=== PATIENT | male | born 1945 | race Caucasian/White ===

== ENCOUNTER → 2019-06-09 10:53 | Outpatient (BNVA) | payer OTHER, SELFPAY | PROVIDERS: Family Provider Family Medicine; PCP Family Medicine; Visit Provider Urology | DX: N40.1 Benign prostatic hyperplasia with lower urinary tract symptoms (principal); N13.8 Other obstructive and reflux uropathy; N52.9 Male erectile dysfunction, unspecified; N20.0 Calculus of kidney | CPT/HCPCS: 81001 ==

== ENCOUNTER → 2019-09-18 14:17 | Outpatient (BNVA) | payer MEDICARE, OTHER, SELFPAY | PROVIDERS: Family Provider Family Medicine; PCP Family Medicine; Visit Provider Nurse Practitioner Family | DX: R50.9 Fever, unspecified (principal); B34.9 Viral infection, unspecified; F17.211 Nicotine dependence, cigarettes, in remission; Z71.89 Other specified counseling | CPT/HCPCS: 87400 ==

== ENCOUNTER 2019-10-05 10:33 | Outpatient (CLI) | payer OTHER, MEDICARE, SELFPAY ==
--- NOTE | 2019-10-05 | XRR_ITS ---
PROCEDURE INFORMATION: Exam: XR Abdomen, 1 View Exam date and time: 10/05/2019 10:52 AM Age: 73 years old Clinical indication: Condition or disease; Other: Stones; Additional info: Stone TECHNIQUE: Imaging protocol: XR of the abdomen. Views: Frontal supine view of the abdomen. 1 View. COMPARISON: No relevant prior studies available. FINDINGS: Gastrointestinal tract: bowel gas pattern is nonspecific. Air filled large bowel including distal rectal gas. Moderate amount stool throughout the large bowel. Organs: 6 mm calculus lower pole right kidney. Bones/joints: Unremarkable. Soft tissues: No calcifications are seen overlying the expected course of the right or left ureters. No suspicious calcifications within the pelvis. XR/XR KUB [id number] IMPRESSION: 1. Bowel gas pattern is nonspecific. Air filled large bowel including distal rectal gas. 2. Moderate amount stool throughout the large bowel.
== END 2019-10-05 10:34 | disposition home or self-care (01) ==
LOC: RAD 10:42
PROVIDERS: PCP Family Medicine; Visit Provider Urology
DX: N20.0 Calculus of kidney (principal)
CPT/HCPCS: 74018; 81001

== ENCOUNTER 2020-04-18 23:01 | Emergency (ER) | payer OTHER, MEDICARE, SELFPAY ==
[2020-04-18 23:06] VITALS: BP 169/90; PULSE 92; RESP 18; TEMP 36.6; O2SAT 97; BMI 32.3
--- NOTE | 2020-04-18 23:15 | ED_ITS ---
HPI - Wound/Laceration General: Chief Complaint: Wound/Laceration Stated Complaint: lacetation to left index finger Time Seen by Provider: 04/18/20 23:07 History of Present Illness: HPI narrative: Patient is a 74-year-old male comes to the ED with superficial laceration to left index finger. Patient says he was skinning an otter with his knife and his knife slipped causing the cut to his left index finger. He was able to control bleeding with towel and pressure. Patient is able to fully move finger and says he is in minimal pain. Patient says he is not up-to-date on his tetanus shot. Associated symptoms: Denies chills, fever(s), nausea or vomiting Review of Systems Const: Denies: fever(s), chills or fatigue Eyes: Denies: change in vision or eye discomfort ENMT: Denies: throat pain, odynophagia, nasal discharge or nasal congestion Card: Denies: chest pain, palpitations, edema, swelling of feet/ankles, dyspnea on exertion or orthopnea Resp: Denies: dyspnea, productive cough or non-productive cough GI: Denies: abdominal pain, nausea, vomiting, diarrhea, constipation or hematochezia : Denies: flank pain, difficulty urinating, dysuria or hematuria Musc: Denies: neck pain, back pain or extremity swelling Skin/Breast: Reports: new lesions (laceration to left index finger); Denies: rash Neuro: Denies: headache(s), numbness in extremities or weakness in extremities PFSH ED PFSH: Medical History BPH loc w urin obs/LUTS Erectile dysfunction Renal calculi Surgical History H/O fasciotomy History of total left knee replacement S/P hernia repair S/P shoulder surgery S/P tonsillectomy Family History Father , 79 Cancer prostate Mother , 87 Lung disease Social History Smoking and tobacco status: former smoker Alcohol intake: current Alcohol intake frequency: few times a month Adopted: No Caregiver/support person: No Lives independently: No Household members: spouse Marital status: Current occupational status: retired History of recent travel: No Current gender identity: Male Physical Exam Const: COMMON NORMALS: no acute distress, patient oriented x3 and alert GENERAL APPEARANCE: cooperative and comfortable HENMT: COMMON NORMALS: normocephalic HEAD & SCALP: normocephalic MOUTH: Normal oral and palatal mucosa present THROAT: posterior oropharynx normal and uvula midline Neck/C-Spine: COMMON NORMALS: supple GENERAL: Yes normal visual inspection Resp: COMMON NORMALS: normal respiratory effort, No retractions, No use of accessory muscles and clear to auscultation bilaterally AUSCULTATION: clear to auscultation bilaterally Cardio: COMMON NORMALS: regular rate, regular rhythm, S1 normal heart sound present, S2 normal heart sound present, No gallops present (Cardio), No clicks present (Cardio), No murmurs present (Cardio) and Peripheral pulses 2+ throughout RATE: regular rate RHYTHM: regular rhythm HEART SOUNDS: S1 normal heart sound present and S2 normal heart sound present PERIPHERAL PULSES: Peripheral pulses 2+ throughout GI: COMMON NORMALS: Normal to inspection, nondistended, normoactive bowel sounds present, Soft to palpation, non-tender and no masses PALPATION: Yes Soft to palpation : COMMON NORMALS: Yes no CVA tenderness BLADDER/KIDNEY EXAM: Yes no CVA tenderness Back/Pelvis: COMMON NORMALS: no CVA tenderness Extremity: NARRATIVE EXTREMITY EXAM: Superficial 1 cm linear laceration to index finger on left hand. No active bleeding and laceration appears clean and not contaminated. Patient has full range of for index finger on left hand. Neuro: COMMON NORMALS: patient oriented x3 and moves all extremities SENSORIUM/ORIENTATION: Yes alert Skin: NARRATIVE SKIN EXAM: Superficial 1 cm linear laceration to index finger on left hand. No active bleeding and laceration appears clean and not contamina meli. GENERAL SKIN EXAM: dry skin Procedures Laceration Laceration 1: Site: hand (Index finger) Side (If applicable): left Size (cm): 1 Description: linear and clean Depth: simple, single layer Pre-repair: irrigated extensively (Irrigated extensively with normal saline and cleaned with CHG swab.) Skin layer closed with: other (Dermabond used) Size (cm): other (Dermabond ) Course Vital Signs: Vital signs: Vital Signs Temperature 97.9 F 04/18/20 23:06 Pulse Rate 92 04/18/20 23:06 Respiratory Rate 18 04/18/20 23:06 Blood Pressure 169/90 04/18/20 23:06 Pulse Oximetry 97 04/18/20 23:06 MDM - Wound/Laceration MDM Narrative: Medical decision making narrative: Patient is a 74-year-old male comes to the ED with a laceration to left index finger. Laceration is on left index finger and is approximately 1 cm linear shape and superficial. Patient has full range of motion on left index finger. Laceration was irrigated extensively with normal saline and then Dermabond was used to close laceration. Laceration was then bandaged by nurse. He was given an updated tetanus shot while here in the ED. Discharged with a prescription for Augmentin as prophylactic treatment for infection. Follow-up with PCP in 7 to 10 days. Return to ED precautions given. Patient understood agree with plan. Discharge Plan Discharge Patient Disposition: Home Clinical Impression: Laceration of finger Qualifiers: Encounter type: initial encounter Finger: index finger Damage to nail status: without damage Foreign body presence: without foreign body Laterality: left Qualified Code(s): S61.211A - Laceration without foreign body of left index finger without damage to nail, initial encounter Condition: Stable Prescriptions: New Augmentin 500-125 mg tablet 1 tab PO BID 5 Days Qty: 10 RF: 0 No Action tamsulosin 0.4 mg capsule 0.8 mg PO DAILY RF: 0 ferrous sulfate 325 mg (65 mg iron) tablet 325 mg PO DAILY RF: 0 cholecalciferol (vitamin D3) 2,000 unit tablet 2,000 unit PO DAILY RF: 0 sertraline [Zoloft] 100 mg tablet 100 mg PO DAILY RF: 0 nortriptyline 10 mg capsule 10 mg PO DAILY RF: 0 sumatriptan succinate [Imitrex] 6 mg/0.5 mL solution SUBCUT RF: 0 methocarbamol 750 mg tablet 750 mg PO TID PRNRF: 0 atorvastatin 80 mg tablet 80 mg PO DAILY RF: 0 levothyroxine 100 mcg capsule 100 mcg PO DAILY RF: 0 vitamin E (dl, acetate) 400 unit capsule 400 unit PO DAILY RF: 0 finasteride 5 mg tablet 5 mg PO DAILY RF: 0 sildenafil 100 mg tablet See Rx Instructions .Route .COMPLEX Qty: 20 RF: 6 Discharge Orders: Discharge ED (Routine); Ordered 04/18/20 Ordered By: Jez Holt Referrals: Suresh Keyes [Primary Care Provider] - Discharge Diet: Regular Discharge Activity: Limit activity as instructed Patient Instructions: Finger Laceration (ED), Skin Adhesive Care (ED) Activity Restrictions/Additional Instructions: Take full course of antibiotics as prescribed. Keep laceration site clean, dry and don't bend finger for the next 48 hours. Then after that you can clean and re-bandage daily. Watch for signs of infection such as redness, warmth, increased tenderness and puslike drainage. If you see the signs of infection return to the ED, urgent care or PCP for reevaluation. call your PCP to schedule a follow-up appointment for reevaluation in about 10 days. Continue taking all home meds. Follow discharge plans as discussed. You can return to the ED if symptoms worsen. Coding Level of Care Code ED Creping Machine Operator Helper for Eunice Collazo Exam Comprehensive
[2020-04-18] MEDS: tetanus-dipt-pertussis 0.5 mL SDV IM (23:45)
[2020-04-18] MEDS: cephALEXin 500 mg Capsule PO (23:46)
--- NOTE | 2020-04-18 23:54 | PC.NURSE ---
telfa applied with gauze 2 wrap with finger splint with coban applied. Reviewed d/c instructions with pt and maintain dressing for 48 hours.
== END 2020-04-19 | disposition home or self-care (01) ==
PROVIDERS: Emergency Provider Physician Assistant; PCP Family Medicine
DX: S61.211A Laceration without foreign body of left index finger without damage to nail, initial encounter (principal); Z87.891 Personal history of nicotine dependence; W26.0XXA Contact with knife, initial encounter; Z23 Encounter for immunization
CPT/HCPCS: 12001; 12345; 90715; 96374; 99281; 99283

== ENCOUNTER 2021-01-25 12:06 | Outpatient (CLI) | payer OTHER, SELFPAY ==
--- NOTE | 2021-01-25 12:00 | XR_ITS ---
WS: [id number] XR KUB [id number] REASON FOR EXAM: RENAL CALCULI FINDINGS: No left intrarenal calculi identified. Previously demonstrated right intrarenal calculi are not identified however there is significant over lying bowel gas and fecal material. No calculi along the course of the ureters or overlying the bladder is identified. Battery pack and leads in the left lower quadrant. Dorsal column stimulator. No other significant abdominal finding. XR/XR KUB [id number] IMPRESSION: No urinary tract calculi identified however the previously demonstrated right r enal calculus is likely obscured by overlying bowel.
== END 2021-01-25 12:07 | disposition home or self-care (01) ==
LOC: RAD 12:07
PROVIDERS: PCP Family Medicine; Visit Provider Urology
DX: N20.0 Calculus of kidney (principal); N40.1 Benign prostatic hyperplasia with lower urinary tract symptoms
CPT/HCPCS: 74018; 81003

== ENCOUNTER 2021-06-28 16:48 | Emergency (ER) | payer OTHER, MEDICARE, SELFPAY ==
[2021-06-28 17:34] VITALS: BP 122/72; PULSE 102; RESP 16; TEMP 37.2; O2SAT 93; BMI 32.3
--- NOTE | 2021-06-28 18:24 | W.ED.GENADLT ---
Documented by User: John Diamond MD 06/29/21 21:07 HPI - General Adult General: Chief complaint: Nausea/Vomiting/Diarrhea Stated complaint: covid symptoms Time Seen by Provider: 06/28/21 17:46 History of Present Illness: Patient is a 75-year-old male with a history of prior abdominal wall hernia repair, renal colic who presents to the emergency room 3 days of diarrhea now with 1 episode of vomiting and lower abdominal pain. Patient tells me that for the last 3 days, he he has had liquid stool. Patient denies any sick contacts at home, recent antibiotics or any recent travel. Patient tells me that around 1230 today, patient began having lower abdominal pain and one episode of vomiting. Patient reports a low-grade fever 99 degrees. Patient denies any melena/hematochezia. Patient has no urinary complaints. Patient denies any penile discharge. Patient denies any chest pain or short of breath, palpitation, cough, sore throat, nasal congestion, runny nose. Patient has no prone with p.o. intake, Onset: 3 days ago Duration:3 days Location:home Severity:mild/moderate Associated symptoms: Reports nausea and vomiting; Deny chest pain, dyspnea, rash or palpitations Review of Systems Const: Denies: fever(s) or chills Eyes: Denies: change in vision ENMT: Denies: mouth pain Card: Denies: chest pain or palpitations Resp: Denies: dyspnea or non-productive cough GI: Reports: abdominal pain, nausea, vomiting and diarrhea : Denies: dysuria Musc: Denies: extremity pain Skin/Breast: Denies: rash or new lesions Neuro: Denies: weakness in extremities Psych: Reports: other (Normal mood) Idris/Lymph: Denies: easy bruising PFSH ED PFSH: Medical History (Updated 06/29/21 @ 01:20 by Wally Real MD) BPH loc w urin obs/LUTS Erectile dysfunction Renal calculi Surgical History H/O fasciotomy History of total left knee replacement S/P hernia repair S/P shoulder surgery S/P tonsillectomy Family History Father , 79 Cancer prostate Mother , 87 Lung disease Social History Smoking and tobacco status: former smoker Alcohol intake: current Alcohol intake frequency: few times a month Adopted: No Caregiver/support person: No Lives independently: No Household members: spouse Marital status: Current occupational status: retired History of recent travel: No Current gender identity: Male Physical Exam Const: COMMON NORMALS: alert HENMT: COMMON NORMALS: atraumatic HEAD & SCALP: atraumatic MOUTH: moist mucous membranes not abnormal Eye: COMMON NORMALS: EOMs intact bilaterally and conjunctivae normal CONJUNCTIVA: Yes conjunctivae normal Neck/C-Spine: COMMON NORMALS: full ROM and supple Resp: COMMON NORMALS: normal respiratory effort and clear to auscultation bilaterally AUSCULTATION: clear to auscultation bilaterally Cardio: COMMON NORMALS: regular rhythm RATE: tachycardic RHYTHM: regular rhythm GI: COMMON NORMALS: Soft to palpation and non-tender PALPATION: Yes Soft to palpation OTHER: No focal TTP. NO guarding rebound, guarding, rigidity. No CVA tenderness to percussion. Neg Hyde/Neg McBurney's point tenderness, no suprabupic tenderness to palpation. Extremity: COMMON NORMALS: full ROM Neuro: SENSORIUM/ORIENTATION: Yes alert MOTOR EXAM: No Abnormal motor strength present and Other motor observations present (no focal motor deficits) Psych: COMMON NORMALS: speech normal SPEECH: Yes normal speech MOOD & AFFECT: Yes euthymic mood Course Vital Signs: Vital signs: Vital Signs Temperature 98.4 F 06/28/21 23:01 Pulse Rate 103 H 06/29/21 01:32 Respiratory Rate 18 06/29/21 01:32 Blood Pressure 161/80 06/29/21 01:32 Pulse Oximetry 96 06/29/21 01:32 [facility] - General Adult Medical Decision Making 75-year-old male with history of prior abdominal wall hernia repair, renal colic presenting to the emergency room 3 days diarrhea now with lower abdominal pain one episode of emesis. On exam, patient is mildly tachycardic to low 100s. Patient has no focal abdominal tenderness to palpation. No guarding or rebound tenderness. Case signed out to Dr. Rela pending CT evaluation. Lab Data : 06/28/21 18:55 06/28/21 18:55 Radiology Impressions Abdomen/Pelvis CT 06/28/21 21:39 IMPRESSION: Probable fecal impaction in the rectum with more proximal constipation as well as infectious or inflammatory enteritis. Laboratory Results WBC 11.4 10^3/uL (4.0-10.0) H 06/28/21 18:55 RBC 4.57 10^6/uL (4.1-5.3) 06/28/21 18:55 Hgb 15.0 g/dL (11.7-16.6) 06/28/21 18:55 Hct 45.7 % (42.0-52.0) 06/28/21 18:55 MCV 100.0 fl (80-94) H 06/28/21 18:55 MCH 32.8 pg (28.0-34.0) 06/28/21 18:55 MCHC 32.8 g/dL (30.0-36.0) 06/28/21 18:55 RDW 13.0 % (12.1-15.1) 06/28/21 18:55 Plt Count 256 10^3/cmm (130-400) 06/28/21 18:55 MPV 10.5 fL (7.4-10.4) H 06/28/21 18:55 Neut % (Auto) 88.0 % 06/28/21 18:55 Lymph % (Auto) 5.6 % 06/28/21 18:55 [place] % (Auto) 5.4 % 06/28/21 18:55 Eos % (Auto) 0.5 % 06/28/21 18:55 Baso % (Auto) 0.2 % 06/28/21 18:55 Neut # (Auto) 10.07 10^3/uL (1.8-7.7) H 06/28/21 18:55 Lymph # (Auto) 0.6 10^3/uL (0.8-4.8) L 06/28/21 18:55 [place] # (Auto) 0.6 10^3/uL (0.2-0.9) 06/28/21 18:55 Eos # (Auto) 0.1 10^3/uL (0.0-0.8) 06/28/21 18:55 Baso # (Auto) 0.0 10^3/uL (0.0-0.1) 06/28/21 18:55 Nucleated RBC % (auto) 0 % 06/28/21 18:55 Nucleated RBCs # 0.0 /100WBC 06/28/21 18:55 Sodium 138 mmol/L (136-145) 06/28/21 18:55 Potassium 4.2 mmol/L (3.5-5.1) 06/28/21 18:55 Chloride 101 mmol/L (98-107) 06/28/21 18:55 Carbon Dioxide 26 mmol/L (22-29) 06/28/21 18:55 Anion Gap 15.2 (5-19) 06/28/21 18:55 BUN 21 mg/dL (8-23) 06/28/21 18:55 Creatinine 0.7 mg/dL (0.7-1.2) 06/28/21 18:55 GFR Calculation Not Reportable 06/28/21 18:55 Glucose 107 mg/dL (65-115) 06/28/21 18:55 Calculated Osmolality 289 mOsm/kg (285-295) 06/28/21 18:55 Calcium 9.5 mg/dL (8.5-10.5) 06/28/21 18:55 Total Bilirubin 0.4 mg/dL (0.15-1.2) 06/28/21 18:55 AST 18 U/L (0-40) 06/28/21 18:55 ALT 23 U/L (0-41) 06/28/21 18:55 Alkaline Phosphatase 89 IU/L (40-130) 06/28/21 18:55 Total Protein 7.4 g/dL (6.6-8.7) 06/28/21 18:55 Albumin 4.3 g/dL (3.5-5.2) 06/28/21 18:55 Globulin 3.1 g/dL (1.3-4.6) 06/28/21 18:55 Lipase 17 U/L (13-60) 06/28/21 18:55 Discharge Plan Discharge Patient Disposition: Home Clinical Impression: Abdominal pain, Nausea & vomiting, Diarrhea, Enteritis, Constipation Condition: Stable Prescriptions: New Zofran 4 mg tablet 4 mg PO TID PRN (Reason: nausea and vomiting) 4 Days Qty: 12 0RF acetaminophen 500 mg tablet 500 mg PO Q6H PRN (Reason: pain) 5 Days Qty: 20 0RF Pepcid 20 mg tablet 20 mg PO BID PRN (Reason: abdominal pain) 10 Days Qty: 20 0RF Maalox Advanced 1,000-60 mg tablet,chewable 1 tab PO TID PRN (Reason: abdominal pain) 7 Days Qty: 21 0RF Augmentin 875-125 mg tablet 1 tab PO BID Qty: 20 0RF Miralax 17 gram/dose powder 17 g PO BID 5 Days Qty: 170 0RF No Action tamsulosin 0.4 mg capsule 0.8 mg PO DAILY 0RF ferrous sulfate 325 mg (65 mg iron) tablet 325 mg PO DAILY 0RF cholecalciferol (vitamin D3) 2,000 unit tablet 2,000 unit PO DAILY 0RF sumatriptan succinate [Imitrex] 6 mg/0.5 mL solution 6 mg SUBCUT PRN 0RF atorvastatin 80 mg tablet 80 mg PO DAILY 0RF levothyroxine 100 mcg capsule 100 mcg PO DAILY 0RF vitamin E (dl, acetate) 400 unit capsule 400 unit PO DAILY 0RF nortriptyline 10 mg capsule 10 mg PO DAILY 0RF sertraline [Zoloft] 100 mg tablet 50 mg PO DAILY 0RF Rx Instructions: 1/2 methocarbamol 750 mg tablet 1,500 mg PO BID PRN (Reason: Muscle Spasm) 0RF Discharge Orders: Discharge ED (Routine); Ordered 06/29/21 Ordered By: Wally Real Referrals: Susy Aguirre MD [Primary Care Provider] - Discharge Diet: Advance as tolerated Discharge Activity: Increase activity as tolerated Patient Instructions: Constipation (ED), Abdominal Pain (ED), Enteritis (ED) Activity Restrictions/Additional Instructions: Please come back if you have any worsening abdominal pain, fever or chills, nausea or vomiting, diarrhea, blood in the stool, inability hold down liquid or solids, or any new concerning complaints. As discussed you do have evidence of enteritis as well as constipation. Please use MiraLAX as a stool softener mixed with electrolyte-containing solution. The goal is to have applesauce consistency stools. Additionally you will be given antibiotics for the enteritis. Please follow-up with your primary care provider. Sign Out Sign Out Data: Patient Sign Out occurred on 06/28/21 at 23:07. Patient's care was discussed, and care was transferred from to Wally Real MD. Post-Handoff Eval: Patient care handoff received from Dr. Diamond pending completion of ED evaluation. Labs notable minimal leukocytosis. Unremarkable metabolic panel. CT imaging notable for a compaction in the rectum and constipation as well as infectious or inflammatory enteritis. I discussed the results of ED evaluation with the patient. He does feel improved after symptom treatment. With audio production instructor present I performed a rectal exam, there was soft brown stool in the rectal vault and no hard impacted stool was identified. Prescriptions, symptom treatment, follow-up plan, and return precautions discussed with the patient. He verbalized understanding was comfortable with discharge. Wally Real MD Emergency Medicine Coding Level of Care Code ED Returned Goods Repairer for Chg Fwd Exam Comprehensive
[2021-06-28] MEDS: lidocaine 2% viscous 15 ML, aluminum-mag hydrox-simethicon 30 ML, sucralfate oral liq 1 GM PO (18:58)
[2021-06-28] MEDS: sodium chloride 0.9% 500 ML IV (18:58)
[2021-06-28 19:11] LABS: Basophils % 0.2 %; Eosinophils # 0.1 10^3/uL (0.0-0.8); Eosinophils % 0.5 %; Hematocrit 45.7 % (42.0-52.0); Lymphocytes # 0.6 10^3/uL (0.8-4.8); Lymphocytes % 5.6 %; Mean Corpuscular HGB Conc 32.8 g/dL (30.0-36.0); Mean Corpuscular Hemoglobin 32.8 pg (28.0-34.0); Mean Platelet Volume 10.5 fL (7.4-10.4); Monocytes # 0.6 10^3/uL (0.2-0.9); Monocytes % 5.4 %; Neutrophils # 10.07 10^3/uL (1.8-7.7); Nucleated Red Blood Cells % 0 %; Platelet Count 256 10^3/cmm (130-400); Red Blood Count 4.57 10^6/uL (4.1-5.3); White Blood Count 11.4 10^3/uL (4.0-10.0)
[2021-06-28 19:43] LABS: Alanine Aminotransferase 23 U/L (0-41); Albumin Level 4.3 g/dL (3.5-5.2); Alkaline Phosphatase 89 IU/L (40-130); Anion Gap 15.2 (5-19); Aspartate Amino Transferase 18 U/L (0-40); Blood Urea Nitrogen 21 mg/dL (8-23); Calcium 9.5 mg/dL (8.5-10.5); Carbon Dioxide 26 mmol/L (22-29); Chloride 101 mmol/L (98-107); Creatinine Clr Calc Pharmacy 86.7362; Globulin 3.1 g/dL (1.3-4.6); Glucose 107 mg/dL (65-115); Lipase 17 U/L (13-60); Osmolality Calculated 289 mOsm/kg (285-295); Potassium 4.2 mmol/L (3.5-5.1); Sodium 138 mmol/L (136-145); Total Bilirubin 0.4 mg/dL (0.15-1.2); Total Protein 7.4 g/dL (6.6-8.7)
--- NOTE | 2021-06-28 21:39 | CTR_ITS ---
PROCEDURE INFORMATION: Exam: CT Abdomen And Pelvis With Contrast Exam date and time: 06/28/2021 9:39 PM Age: 75 years old Clinical indication: Abnormal findings; Abnormal lab test; Nausea and vomiting; Prior surgery; Surgery type: Hernia repair; Patient HX: N/v/d. Elevated wbc. ; Additional info: Eval for infection TECHNIQUE: Imaging protocol: Computed tomography of the abdomen and pelvis with contrast. Radiation optimization: All CT scans at this facility use at least one of these dose optimization techniques: automated exposure control; mA and/or kV adjustment per patient size (includes targeted exams where dose is matched to clinical indication); or iterative reconstruction. Contrast material: VISI 320; Contrast volume: 75 ml; Contrast route: INTRAVENOUS (IV); COMPARISON: CT abdomen pelvis w con* [id number] 12/09/2017 10:42 PM RADIATION DOSE METRICS: Total DLP (mGy-cm): 1813.69 FINDINGS: Tubes, catheters and devices: There is an electronic stimulator device in the superficial soft tissues of the left flank with its tip in the spinal canal. Lungs: Atelectasis and linear scarring at the lung bases. Liver: Normal. No mass. Gallbladder and bile ducts: Normal. No calcified stones. No ductal dilation. Pancreas: Normal. No ductal dilation. Spleen: Normal. No splenomegaly. Adrenal glands: Normal. No mass. Kidneys and ureters: Normal. No hydronephrosis. Stomach and bowel: There is a fecal impaction in the rectum with more proximal constipation. Scattered diverticula without evidence of acute diverticulitis or perforation. Loops of fluid-filled small bowel throughout the abdomen with enhancing gross consistent with infectious or inflammatory enteritis. Appendix: No evidence of appendicitis. Intraperitoneal space: Unremarkable. No free air. No significant fluid collection. Vasculature: Unremarkable. No abdominal aortic aneurysm. Lymph nodes: Unremarkable. No enlarged lymph nodes. Urinary bladder: Unremarkable as visualized. Reproductive: Unremarkable as visualized. Bones/joints: Unremarkable. No acute fracture. Soft tissues: Unremarkable. CT/CT abdomen pelvis w con* [id number] IMPRESSION: Probable fecal impaction in the rectum with more proximal constipation as well as infectious or inflammatory enteritis.
[2021-06-28] MEDS: diphenhydrAMINE 50 mg/mL SDV 1mL IVP (22:57)
[2021-06-28 23:01] VITALS: BP 149/79; PULSE 102; RESP 14; TEMP 36.9; O2SAT 95
[2021-06-28] MEDS: iodixanol 320 mg/mL 100mL Btl IV (23:07)
[2021-06-29 01:32] VITALS: BP 161/80; PULSE 103; RESP 18; O2SAT 96
== END 2021-06-29 01:35 | disposition home or self-care (01) ==
PROVIDERS: Emergency Medicine; Emergency Provider Emergency Medicine; PCP Family Medicine
DX: K52.9 Noninfective gastroenteritis and colitis, unspecified (principal); K59.00 Constipation, unspecified; Z87.891 Personal history of nicotine dependence
CPT/HCPCS: 74177; 80053; 83690; 85025; 96361; 96374; 96375; 99283; J1200; J2930; J7040; Q9967

== ENCOUNTER → 2021-07-20 13:42 | Outpatient (BNVA) | payer OTHER, SELFPAY | PROVIDERS: PCP Family Medicine; Referring Provider Family Medicine; Visit Provider Surgery | DX: R10.32 Left lower quadrant pain (principal) ==

== ENCOUNTER → 2021-08-02 12:46 | Outpatient (BNVA) | payer OTHER, SELFPAY | PROVIDERS: PCP Family Medicine; Referring Provider Family Medicine; Visit Provider Surgery | DX: R10.32 Left lower quadrant pain (principal) | CPT/HCPCS: 99203 ==

== ENCOUNTER → 2021-10-10 13:38 | Outpatient (BNVA) | payer OTHER, SELFPAY | PROVIDERS: PCP Family Medicine; Visit Provider Urology | DX: N40.1 Benign prostatic hyperplasia with lower urinary tract symptoms (principal); N20.0 Calculus of kidney; N52.9 Male erectile dysfunction, unspecified | CPT/HCPCS: 51798; 81003; 99213 ==

== ENCOUNTER 2022-05-02 20:32 | Emergency (ER) | payer OTHER, SELFPAY ==
[2022-05-02 20:59] VITALS: BP 143/76; PULSE 88; RESP 12; TEMP 36.7; O2SAT 94; BMI 35.0
--- NOTE | 2022-05-02 21:08 | W.ED.EXTPRO ---
HPI - Extremity Problem General: Chief complaint: Extremity Injury, Upper Stated complaint: right finger lac Time Seen by Provider: 05/02/22 21:05 History of Present Illness: 76-year-old male patient comes in today with injury to the distal right index finger. Patient was using a williams and was moving a piece of wood against a williams to remove the bars when he caught the tip of his finger against the electric williams. Patient has an avulsion to the distal tip of the finger with distal nail injury. Patient cannot recall his last tetanus. Patient appears well. Patient denies history of diabetes. Review of Systems Skin/Breast: Reports: new lesions PFS ED PFSH: Medical History BPH loc w urin obs/LUTS Erectile dysfunction Renal calculi Surgical History H/O fasciotomy History of total left knee replacement S/P hernia repair S/P shoulder surgery S/P tonsillectomy Family History Father , 79 Cancer prostate Mother , 87 Lung disease Social History Smoking and tobacco status: former smoker Alcohol intake: current Alcohol intake frequency: few times a week Adopted: No Caregiver/support person: No Lives independently: No Household members: spouse Marital status: service: Yes Current occupational status: retired History of recent travel: No Current gender identity: Male Physical Exam Const: COMMON NORMALS: alert HENMT: COMMON NORMALS: normocephalic HEAD & SCALP: normocephalic Neck/C-Spine: COMMON NORMALS: full ROM Resp: COMMON NORMALS: normal respiratory effort Cardio: COMMON NORMALS: regular rate RATE: regular rate Extremity: RIGHT UPPER EXTREMITY: Yes hand & digits (1cm Right distal finger circular avulsion with nail involvement) Right hand and digits: Yes inspection, Yes palpation and Yes ROM exam Neuro: SENSORIUM/ORIENTATION: Yes alert Skin: TRAUMA: abrasion (Avulsion injury to distal right index finger) Course Vital Signs: Vital signs: Vital Signs Temperature 98.1 F 05/02/22 20:59 Pulse Rate 88 05/02/22 20:59 Respiratory Rate 12 05/02/22 20:59 Blood Pressure 143/76 05/02/22 20:59 Pulse Oximetry 94 05/02/22 20:59 Oxygen Delivery Me thod 05/02/22 20:59 MDM - Extremity (Nontraumatic) Medical Decision Making Patient comes in for injury to the right distal finger. On exam patient has normal range of motion of the finger. The distal finger has a circular avulsion approximately 1 cm that involves the distal nail. No foreign body or fracture is noted. Patient appears nontoxic. Differential diagnosis includes avulsion, nail injury, abrasion, need for prophylaxis tetanus. Tetanus was updated. Wound was cleaned and dressed with antibiotic ointment and a nonstick dressing. Reviewed exam with patient with recommendations for treatment and follow-up. Patient reported understanding and agreed to plan. Discharge Plan Discharge Patient Disposition: Home Clinical Impression: Avulsion of skin of finger Qualifiers: Encounter type: initial encounter Qualified Code(s): S61.209A - Unspecified open wound of unspecified finger without damage to nail, initial encounter Condition: Stable Prescriptions: New cephalexin 500 mg capsule 500 mg PO TID 7 Days Qty: 21 0RF bacitracin 500 unit/gram ointment 1 applic topical BID Qty: 28 0RF Rx Instructions: til wound is healed hydrocodone-acetaminophen 5-325 mg tablet 1 tab PO Q8H PRN (Reason: pain (scale score 7-10)) Qty: 5 0RF Discontinued amoxicillin-pot clavulanate [Augmentin] 875-125 mg tablet 1 tab PO BID Qty: 20 0RF No Action tamsulosin 0.4 mg capsule 0.8 mg PO DAILY cholecalciferol (vitamin D3) 2,000 unit tablet 2,000 unit PO DAILY sumatriptan succinate [Imitrex] 6 mg/0.5 mL solution 6 mg SUBCUT PRN PRN (Reason: Headache) atorvastatin 80 mg tablet 80 mg PO DAILY levothyroxine 100 mcg capsule 100 mcg PO DAILY vitamin E (dl, acetate) 400 unit capsule 400 unit PO DAILY sertraline [Zoloft] 100 mg tablet 50 mg PO DAILY Rx Instructions: 1/2 methocarbamol 750 mg tablet 1,500 mg PO DAILY PRN (Reason: Muscle Spasm) hydrochlorothiazide 25 mg tablet 25 mg PO DAILY nortriptyline 50 mg capsule 100 mg PO BEDTIME Discharge Orders: Discharge ED (Routine); Ordered 05/02/22 Ordered By: Suresh Arredondo Referrals: Susy Aguirre MD [Primary Care Provider] - Discharge Diet: Usual diet Discharge Activity: Increase activity as tolerated Patient Instructions: Laceration Without Closure (ED) Activity Restrictions/Additional Instructions: Clean wound twice a day with mild soap and water and cover with antibiotic, bacitracin, ointment until healed. Take oral antibiotics 3 times a day for the next 7 days. Monitor site for increasing redness and swelling or streaking up the arm. Follow-up with primary care in 1 week for recheck. Return to ED for new concerns. Coding Level of Care Code ED [employer] for Eunice Collazo
[2022-05-02] MEDS: cephALEXin 500 mg Capsule PO (21:44)
[2022-05-02] MEDS: tetanus-dipt-pertussis 0.5 mL SDV IM (21:45)
[2022-05-02] MEDS: bacitracin ointment Pkt 1 EACH TOPICAL (21:54)
== END 2022-05-02 21:52 | disposition home or self-care (01) ==
PROVIDERS: Emergency Provider Nurse Practitioner Family; PCP Family Medicine
DX: S61.300A Unspecified open wound of right index finger with damage to nail, initial encounter (principal); Z87.891 Personal history of nicotine dependence; W29.8XXA Contact with other powered hand tools and household machinery, initial encounter; Z23 Encounter for immunization
CPT/HCPCS: 90471; 90715; 99284

== ENCOUNTER 2022-12-13 13:47 | Outpatient (RCR) | payer OTHER, SELFPAY | END 2022-12-13 23:59 | disposition home or self-care (01) | LOC: SPT 13:47 | PROVIDERS: PCP Family Medicine; Visit Provider Family Medicine | DX: R26.81 Unsteadiness on feet (principal) | CPT/HCPCS: 95992; 97161 ==

== ENCOUNTER 2022-12-14 06:00 | Outpatient (RCR) | payer OTHER, SELFPAY | END 2023-01-12 23:59 | disposition home or self-care (01) | LOC: SPT 06:00 | PROVIDERS: PCP Family Medicine; Visit Provider Family Medicine | DX: R26.81 Unsteadiness on feet (principal) | CPT/HCPCS: 95992 ==

== ENCOUNTER → 2024-02-14 11:48 | Outpatient (BNVA) | payer OTHER, SELFPAY | PROVIDERS: PCP Family Medicine; Referring Provider Family Medicine; Visit Provider Nurse Practitioner Family | DX: D48.5 Neoplasm of uncertain behavior of skin (principal); L57.0 Actinic keratosis; L82.1 Other seborrheic keratosis; D22.61 Melanocytic nevi of right upper limb, including shoulder; L57.8 Other skin changes due to chronic exposure to nonionizing radiation | CPT/HCPCS: 11102; 17000; 99203 ==

== ENCOUNTER → 2024-06-13 13:10 | Outpatient (BNVA) | payer OTHER, SELFPAY | PROVIDERS: PCP Family Medicine; Visit Provider Family Medicine Adult Medicine | DX: M19.011 Primary osteoarthritis, right shoulder (principal) | CPT/HCPCS: 73030 ==

== ENCOUNTER → 2024-08-05 15:33 | Outpatient (BNVA) | payer OTHER, SELFPAY | PROVIDERS: PCP Family Medicine; Visit Provider Nurse Practitioner Family | DX: L82.1 Other seborrheic keratosis (principal); L81.4 Other melanin hyperpigmentation; L57.8 Other skin changes due to chronic exposure to nonionizing radiation; X32.XXXA Exposure to sunlight, initial encounter; L57.0 Actinic keratosis | CPT/HCPCS: 17000; 99213 ==

== ENCOUNTER → 2025-01-19 10:28 | Outpatient (BNVA) | payer OTHER, SELFPAY | PROVIDERS: PCP Family Medicine; Visit Provider Nurse Practitioner Family | DX: L82.1 Other seborrheic keratosis (principal); L57.8 Other skin changes due to chronic exposure to nonionizing radiation; X58.XXXA Exposure to other specified factors, initial encounter; L81.4 Other melanin hyperpigmentation; D22.5 Melanocytic nevi of trunk; L57.0 Actinic keratosis | CPT/HCPCS: 17000; 99213 ==

== ENCOUNTER → 2025-03-22 08:35 | Outpatient (BNVA) | payer OTHER, SELFPAY | PROVIDERS: PCP Family Medicine; Visit Provider Orthopaedic Surgery | DX: M19.012 Primary osteoarthritis, left shoulder (principal) | CPT/HCPCS: 73030; 99204 ==